=== PATIENT | female | born 1970 | race Caucasian/White ===

== ENCOUNTER 2018-05-06 15:39 | Outpatient (CLI) | payer OTHER ==
--- NOTE | 2018-05-07 08:39 | Mammography Report ---
Reason: SCREENING MAMMO Procedure Date: 05/06/2018 Accession Number: [id number] / [id number] Procedure: DEANNA - Screening Mammo w/Scott CPT Code: FULL RESULT: EXAM: Screening Mammo w/Scott DATE: 05/06/2018 4:54 PM CLINICAL HISTORY: Screening encounter. No reported risk factors. TECHNIQUE: Bilateral CC and MLO views were obtained. COMPARISON: 05/13/2014 through 07/12/2010. FINDINGS: The breasts demonstrate heterogeneously dense fibroglandular parenchyma bilaterally. Previously seen well rounded isodense nodules have changed in size and location. In the right breast 1.6 cm from the nipple is a 1 cm well rounded isodense nodule, CC image 30; 4.2 cm from the nipple is a 0.8 cm well-circumscribed nodule CT image 31 and CC image 34. In the left breast 3.4 cm from the nipple is a 2.2 cm well-circumscribed nodule MLO image 32 and C6 image 33; and 3.4 cm from the nipple is a 2.3 cm well-circumscribed isodense nodule MLO image 34 and CC image 33. Given prior examinations and overall pattern and appearance, this is suggestive of a pattern of waxing and waning cysts which should be confirmed with additional bilateral breast ultrasound. There are coarse typically benign calcifications. No suspicious clustered microcalcifications, or regions of architectural distortion are identified. IMPRESSION: Incomplete examination RECOMMENDATION: Additional evaluation of both breasts with focused ultrasound as above. BIRADS CATEGORY 0: Incomplete examination STANDARD QUALIFYING STATEMENTS: 1. This examination was not reviewed with the aid of Computer-Aided Detection (CAD). 2. A negative or benign imaging report should not delay biopsy if clinically suspicious findings are present. Consider surgical consultation if warrented. More than 5% of cancers are not identified by imaging. 3. Dense breasts may obscure an underlying neoplasm. 4. This examination was reviewed with the aid of 3D breast imaging (tomosynthesis).
== END 2018-05-06 15:40 | disposition home or self-care (01) ==
LOC: DI 15:39
PROVIDERS: ATTEND Physician Assistant Medical
DX: Z12.31 Encounter for screening mammogram for malignant neoplasm of breast (principal)
CPT/HCPCS: 77063; 77067

== ENCOUNTER 2018-06-08 13:15 | Outpatient (CLI) | payer OTHER ==
--- NOTE | 2018-06-08 15:45 | Ultrasound Report ---
Reason: ABNORMAL MAMMOGRAM Procedure Date: 06/08/2018 Accession Number: [id number] / [id number] Procedure: US - Breast Unilateral Limited CPT Code: FULL RESULT: EXAM: Breast Unilateral Limited Left, Breast Unilateral Limited Right DATE: 06/08/2018 2:16 PM CLINICAL HISTORY: FOR FURTHER EVALUATION OF ABNORMAL MAMMOGRAM COMPARISON: Mammography 05/06/2018 TECHNIQUE: Targeted ultrasound was performed of the bilateral breasts in the area of clinical concern in the retroareolar region of both breasts.. Color Doppler was employed as appropriate. FINDINGS: Left breast: Corresponding to the mammographic findings are 2 simple cysts measuring 2.2 x 1.1 x 1.9 cm and 2.1 x 1.2 x 1.9 cm respectively. No solid mass is seen. Right breast: Corresponding to the mammographic findings are 2 simple cysts measuring 1 x 0.7 x 1 cm and 0.7 x 0.6 x 0.7 cm. IMPRESSION: Benign findings RECOMMENDATION: Follow-up routine screening mammography in one year. BIRADS CATEGORY 2: Benign findings RADIA
--- NOTE | 2018-06-08 15:45 | Ultrasound Report ---
Reason: ABNORMAL MAMMOGRAM Procedure Date: 06/08/2018 Accession Number: [id number] / [id number] Procedure: US - Breast Unilateral Limited CPT Code: FULL RESULT: EXAM: Breast Unilateral Limited Left, Breast Unilateral Limited Right DATE: 06/08/2018 2:16 PM CLINICAL HISTORY: FOR FURTHER EVALUATION OF ABNORMAL MAMMOGRAM COMPARISON: Mammography 05/06/2018 TECHNIQUE: Targeted ultrasound was performed of the bilateral breasts in the area of clinical concern in the retroareolar region of both breasts.. Color Doppler was employed as appropriate. FINDINGS: Left breast: Corresponding to the mammographic findings are 2 simple cysts measuring 2.2 x 1.1 x 1.9 cm and 2.1 x 1.2 x 1.9 cm respectively. No solid mass is seen. Right breast: Corresponding to the mammographic findings are 2 simple cysts measuring 1 x 0.7 x 1 cm and 0.7 x 0.6 x 0.7 cm. IMPRESSION: Benign findings RECOMMENDATION: Follow-up routine screening mammography in one year. BIRADS CATEGORY 2: Benign findings RADIA
== END 2018-06-08 13:16 | disposition home or self-care (01) ==
LOC: DI 13:15
PROVIDERS: ATTEND Physician Assistant Medical
DX: N60.12 Diffuse cystic mastopathy of left breast (principal); N60.11 Diffuse cystic mastopathy of right breast
CPT/HCPCS: 76642

== ENCOUNTER 2018-07-03 17:03 | Outpatient (CLI) | payer OTHER ==
--- NOTE | 2018-07-04 20:34 | Ultrasound Report ---
Reason: MENORRHAGIA Procedure Date: 07/03/2018 Accession Number: [id number] / [id number] Procedure: US - Pelvic w/Transvaginal CPT Code: FULL RESULT: EXAM: PELVIC ULTRASOUND EXAM DATE: 07/03/2018 05:40 PM. CLINICAL HISTORY: Menorrhagia. COMPARISON: None. TECHNIQUE: Realtime transabdominal pelvic scan performed to identify the uterus and adnexa and as an overview of other pelvic structures, followed by transvaginal scan to provide greater detail of the uterus and adnexa, with static image documentation. FINDINGS: Uterus: 11.8 x 5.4 x 7.7 cm, volume 256 cc. Anteverted position. Enlarged and quite heterogeneous. Masses: Quite heterogeneous uterus with at least one 16 x 13 mm right fundal subserosal fibroid. Endometrium: 11 mm. Possible 10 x 7 mm echogenic nodule at the fundal portion of the endometrial anteriorly. No internal vascularity seen. Cervix: Unremarkable. Right Ovary: 2.7 1.8 x 2.1 cm, volume 5.2 cc. Normal echotexture and blood flow. Left Ovary: Not visualized due to bowel gas. No adnexal masses seen. Free Fluid: None. Other: None. IMPRESSION: 1. Enlarged and heterogeneous uterus with only one discrete fibroid seen. There could be more ill-defined fibroids plus or minus adenomyosis. MRI could be considered if indicated. 2. Possible 10 mm endometrial polyp. RADIA
== END 2018-07-03 17:04 | disposition home or self-care (01) ==
LOC: DI 17:03
PROVIDERS: ATTEND Obstetrics & Gynecology
DX: D25.2 Subserosal leiomyoma of uterus (principal)
CPT/HCPCS: 76830; 76856